=== PATIENT | male | born 1945 | race Caucasian/White ===

== ENCOUNTER 2018-05-24 23:50 | Observation (INO) | END 2018-05-26 16:23 | disposition home or self-care (01) ==

== ENCOUNTER 2019-05-21 16:44 | Observation (INO) | payer OTHER ==
[~2019-05-21] VITALS: Ht 177.8 cm; Wt 72.0 kg
[~2019-05-21 16:44] MED LIST: IBUP-1982 PO
[2019-05-21] MEDS ORDERED: SOD CHLORIDE 0.9% 1,000 ML IV STA (16:52)
[2019-05-21] MEDS ORDERED: SOD CHLORIDE 0.9% 500 ML IV STA (16:52)
--- NOTE | 2019-05-21 17:25 | ERD ---
ER Documentation Chief Complaint Chief Complaint BIB [id number] s/p fall 5 days ago, was unable to get up d/t weakness HPI 73-year-old male with no past medical history brought in by ambulance after he was found by the mailman on the floor unable to get up in his house. Patient lives alone. He states that about 1 week ago he fell next to his couch and was unable to get up. He states that neighbors have been visiting him and did call ambulance. Reportedly ambulance personnel went to his house and got him off of the ground but he never went to the hospital. He then fell again and was unable to get up. He has been on the ground for the last 3 days. He has been eating and urinating. Otherwise his story is somewhat unclear but the patient seems oriented. He is denying any pain in his back or extremities. He denies hitting his head. ROS All systems reviewed and are negative except as per history of present illness. Medications Home Meds Reported Medications Ibuprofen* (Ibuprofen*) 200 Mg Capsule, PO Q8 07/23/11 Allergies Allergies: Coded Allergies: Shellfish (Verified Allergy, Unknown, 05/25/18) PMhx/Soc History of Surgery: No Anesthesia Reaction: No Hx Neurological Disorder: No Hx Respiratory Disorders: Yes (ASTHMA) Hx Cardiac Disorders: No Hx Psychiatric Problems: No Hx Miscellaneous Medical Probl: No Hx Alcohol Use: No Hx Substance Use: No Hx Tobacco Use: No FmHx Family History: No diabetes Physical Exam Vitals Vital Signs Date Temp Pulse Resp B/P (MAP) Pulse Ox O2 O2 Flow FiO2 Time Delivery Rate 05/21/19 98.0 90 16 105/57 100 16:49 (73) Physical Exam Const: Very dirty, foul-smelling, unkempt, disheveled.. No apparent distress, nontoxic Head: Atraumatic Eyes: Normal Conjunctiva, PERRLA, EOMI ENT: Dry mucous membranes. Normal External Ears, Nose and Mouth. Neck: Full range of motion. No meningismus. No midline tenderness Chest wall: Nontender to palpation, no crepitus, no bruising Resp: Clear to auscultation bilaterally Cardio: Regular rate and rhythm, no murmurs. 2+ distal pulses Abd: Soft, non tender, non distended. Normal bowel sounds Skin: No petechiae or rashes Back: No midline or flank tenderness. Left upper play back operator to palpation Ext: No deformities. No joint swelling. Full range of motion at all joints. Old bruising noted to bilateral upper extremities, otherwise normal to inspection and palpation Neur: Awake and alert, oriented x3, no facial asymmetry, cranial nerves intact, strength and sensations grossly intact. Psych: Normal Mood and Affect Result Diagram: 05/21/19 1705 05/21/19 1705 Results 24 hrs Laboratory Tests Test 05/21/19 17:05 05/21/19 17:21 05/21/19 18:41 White Blood Count 11.8 10^3/ul Red Blood Count 3.77 10^6/ul Hemoglobin 12.3 g/dl Hematocrit 36.6 % Mean Corpuscular Volume 97.1 fl Mean Corpuscular Hemoglobin 32.6 pg Mean Corpuscular 33.6 g/dl Hemoglobin Concent Red Cell Distribution Width 14.2 % Platelet Count 183 10^3/UL Mean Platelet Volume 9.7 fl Immature Granulocytes % 0.500 % Neutrophils % 77.5 % Lymphocytes % 13.1 % Monocytes % 7.9 % Eosinophils % 0.7 % Basophils % 0.3 % Nucleated Red Blood Cells % 0.0 /100WBC Immature Granulocytes # 0.060 10^3/ul Neutrophils # 9.2 10^3/ul Lymphocytes # 1.6 10^3/ul Monocytes # 0.9 10^3/ul Eosinophils # 0.1 10^3/ul Basophils # 0.0 10^3/ul Nucleated Red Blood Cells # 0.0 10^3/ul Prothrombin Time 11.9 Sec Prothrombin Time Ratio 0.9 INR International 0.87 Normalized Ratio Activated Partial Thromboplast 26.3 Sec Time Sodium Level 140 mmol/L Potassium Level 3.9 mmol/L Chloride Level 108 mmol/L Carbon Dioxide Level 26 mmol/L Anion Gap 6 Blood Urea Nitrogen 54 mg/dl Creatinine 1.63 mg/dl Est Glomerular Filtrat mL/min Rate mL/min Glucose Level 115 mg/dl Calcium Level 8.8 mg/dl Total Bilirubin 0.7 mg/dl Direct Bilirubin 0.00 mg/dl Indirect Bilirubin 0.7 mg/dl Aspartate Amino Transf (AST/SGOT) 38 IU/L Alanine 36 IU/L Aminotransferase (ALT/SGPT) Alkaline Phosphatase 108 IU/L Troponin I < 0.012 ng/ml Total Protein 6.7 g/dl Albumin 3.6 g/dl Globulin 3.10 g/dl Albumin/Globulin Ratio 1.16 Bedside Glucose 137 mg/dL Urine Color YELLOW Urine Clarity CLEAR Urine pH 5.0 Urine Specific Willow 1.021 Urine Ketones NEGATIVE mg/dL Urine Nitrite NEGATIVE mg/dL Urine Bilirubin NEGATIVE mg/dL Urine Urobilinogen NEGATIVE mg/dL Urine Leukocyte Esterase NEGATIVE Nazia/ul Urine Microscopic RBC 4 /HPF Urine Microscopic WBC 0 /HPF Urine Hemoglobin 1+ mg/dL Urine Glucose NEGATIVE mg/dL Urine Total Protein NEGATIVE mg/dl Current Medications Medications Dose Sig/Claude Start Time Status Last (Trade) Ordered Route PRN Stop Time Admin Dose Reason Admin Sodium 500 ml @ Q1H STAT 05/21/19 DC 05/21/19 Chloride 500 mls/hr IV 16:52 05/21/19 17:28 17:51 Sodium 1,000 ml @ Q1H STAT 05/21/19 DC 05/21/19 Chloride 1,000 mls/hr IV 16:52 05/21/19 17:28 17:51 Ondansetron 4 mg BRIDGE ORDER 05/21/19 HCl (Zofran PRN IV 19:00 05/22/19 Inj) NAUSEA/VOMITI 18:59 NG 650 mg ER BRIDGE 05/21/19 Acetaminophen PRN PO 19:00 05/22/19 (Tylenol .MILD PAIN 18:59 Tab) 1-3 OR TEMP Procedures/MDM EMERGENT LABS AND DIAGNOSTIC STUDIES: Lab Results above were reviewed and interpreted by me. CBC: no anemia or evidence of infection CMP: Elevated BUN and creatinine, consistent with acute renal failure. No evidence of clinically significant electrolyte abnormality, acidosis, hypoglycemia, liver disease, or biliary obstruction Troponin within normal limits, not indicative of cardiac ischemia UA: 1+ hemoglobin. No RBCs. No evidence of infection 12-lead EKG was interpreted by Beni Thompson MD: Sinus rhythm with PVCs Normal axis Normal intervals No acute ST or T wave changes suggestive of acute ischemia or STEMI. Radiology Results as interpreted by Radiology below were reviewed by SRadha Thompson MD: Chest x-ray shows no acute abnormalities CT head: [] Initial Nursing notes reviewed. Previous Medical Records requested via the Electronic Health Record. EMERGENCY DEPARTMENT COURSE / MEDICAL DECISION MAKING: Patient is clearly unable to take care of himself as he has had frequent falls. He has no evidence of trauma on exam. Labs are notable for acute renal failure likely secondary to his severe dehydration. IV fluids were started. There is no evidence of infection at this time. No focal deficits or any other signs of stroke. Patient will require admission for hydration and placement. Accepting Care Team: Current data and ongoing care discussed. Time: Time of admission Primary Provider: Dr. Sinclair Outstanding Data: none Departure Diagnosis: Primary Impression: Acute renal failure Acute renal failure type: unspecified Qualified Codes: N17.9 - Acute kidney failure, unspecified Additional Impressions: Fall with no significant injury Encounter type: initial encounter Qualified Codes: W19.XXXA - Unspecified fall, initial encounter Gravely disabled Condition: Fair CHLOÉ THOMPSON MD May 21, 2019 17:25
[2019-05-21] MEDS ORDERED: ONDANSETRON 4 MG INJ IV PRN (19:00)
[2019-05-21] MEDS ORDERED: ACETAMINOPHEN 325 MG TAB PO PRN ×2 (19:00→21:00)
[2019-05-21 20:40] VITALS: BP 135/68; PULSE 69; RESP 18
[2019-05-21] MEDS ORDERED: ZOLPIDEM 5 MG TAB PO PRN (21:00)
[2019-05-21] MEDS: SOD CHLORIDE 0.9% 1,000 ML IV SCH (22:02)
[2019-05-21 23:22] VITALS: Ht 177.8 cm; Wt 72.0 kg
[2019-05-22 02:10] VITALS: BP 127/63; PULSE 62; RESP 18
[2019-05-22] MEDS: SOD CHLORIDE 0.9% 1,000 ML IV SCH ×2 (06:29→11:11)
[2019-05-22 08:22] VITALS: BP 146/69; PULSE 70; RESP 18
[2019-05-22] MEDS ORDERED: ACET325T33 PO (10:14)
[2019-05-22] MEDS ORDERED: ZOLP5TAB PO (10:14)
--- NOTE | 2019-05-22 11:58 | HP ---
DATE OF ADMISSION: 05/21/2019 CHIEF COMPLAINT: Generalized weakness. HISTORY OF PRESENT ILLNESS: A 73-year-old male with unremarkable past medical history who was ольга t into emergency room by paramedics after he was found down on the ground and unable to get up at [facility]. The mailman called paramedics. The patient lives by himself. He is a poor historian. The patie nt believes that he fell 1 week prior to admission and unable to get up. Initial evaluation was unre markable. The patient had very poor hygiene and quite disheveled. CPK was mildly elevated at 535. Initial BUN and creatinine were 54 and 1.63. Renal function improved following hydration. A repeat BUN and creatinine were 33 and 0.97. There were no electrolyte abnormalities. Albumin was at 3.6: White blood cell count was 11.8, hemoglobin 12.3, and platelet count 183,000. PAST MEDICAL HISTORY: None. MEDICATIONS PRIOR TO ADMISSION: Ibuprofen as needed. SOCIAL HISTORY: The patient lives at home by himself. He has not been able to care for himself. He denies tobacco or alcohol use. PHYSICAL EXAMINATION: GENERAL: Well-developed, well-nourished male with very poor or hygiene. He is foul smelling and radha te disheveled. VITAL SIGNS: Stable. He is afebrile. HEENT: Extraocular muscles intact. Pupils are equal and reactive to light bilaterally. Sclerae are anicteric. Oropharynx is clear and moist. NECK: Supple, no JVD, no carotid bruits. LUNGS: Clear to auscultation bilaterally. CARDIAC: Regular rate and rhythm. No murmurs, rubs or gallops. ABDOMEN: Soft, nontender, nondistended, normoactive bowel sounds. EXTREMITIES: No clubbing, cyanosis, or edema. Feet are very dirty. NEUROLOGICAL: Cranial nerves II through XII are intact. The patient moves all of his extremities, b ut has generalized weakness, coordination is intact. The CAT scan of the brain was unremarkable. ASSESSMENT: 1. A 73-year-old male with inability to care for self. 2. Generalized weakness. 3. Dehydration, resolved. PLAN: 1. Place in med/surg observation and continue IV fluid hydration. Arrange assisted facility placement for physical therapy and rehabilitation. 2. The patient will need long-term placement. Dictated By: RICARDO COTO/CYNDI Conf#: [id number] DID#: [id number]
--- NOTE | 2019-05-22 13:54 | DS ---
DATE OF ADMISSION: 05/21/2019 DATE OF DISCHARGE: DISCHARGE DIAGNOSES: 1. A 73-year-old male with generalized weakness. 2. Inability to care for self. 3. Dehydration, resolved. 4. Acute kidney injury, resolved. HOSPITAL COURSE: A 73-year-old male, who lives by himself, was brought in by paramedics after he was found on the ground. The patient was quite disheveled and dirty. Initial evaluation revealed acute dehydration and acute kidney injury. The patient received IV fluid hydration and renal function imp roved. The rest of the evaluation was unremarkable. The patient is in a stable condition for transi tion to [facility] facility for physical therapy and rehabilitation. He will need a long-term p lacement due to inability to care for self. Dictated By: RICARDO COTO/CYNDI Conf#: [id number] DID#: [id number]
[2019-05-22 13:57] VITALS: BP 129/63; PULSE 76; RESP 18
== END 2019-05-22 18:11 ==
LOC: E/R 16:44 → 2NE 18:58
PROVIDERS: ADMIT Internal Medicine; ATTEND Internal Medicine
DX: N17.9 Acute kidney failure, unspecified (principal); E86.0 Dehydration; R53.1 Weakness; J45.909 Unspecified asthma, uncomplicated; I67.82 Cerebral ischemia
CPT/HCPCS: 36415; 70450; 71045; 80048; 80053; 81001; 82550; 82962; 84484; 85025; 85610; 85730; 93005; 97161; 99285; G0378; J7030; J7040

== ENCOUNTER 2019-07-27 12:41 | Observation (INO) | payer OTHER ==
[~2019-07-27] VITALS: Ht 180.3 cm; Wt 64.5 kg
[~2019-07-27 12:41] MED LIST changes: +ACET325T33 PO; +ENOX40DI14 SC; +HYDR-3601 PO; -IBUP-1982 PO; +ZOLP5TAB PO
[2019-07-27] MEDS ORDERED: ACETAMINOPHEN 325 MG TAB PO PRN (16:00)
[2019-07-27] MEDS ORDERED: ONDANSETRON 4 MG INJ IV PRN (16:00)
[2019-07-27] MEDS ORDERED: morphine 2 MG INJ IV PRN (18:30)
[2019-07-27] MEDS ORDERED: ZOLPIDEM 5 MG TAB PO PRN (18:30)
[2019-07-27] MEDS ORDERED: HYDROCODONE/APAP (5/325) TAB PO PRN (18:30)
[2019-07-27 19:15] VITALS: Ht 180.3 cm; Wt 64.5 kg
[2019-07-27 20:00] VITALS: BP 133/72; PULSE 74; RESP 19
[2019-07-28 00:02] VITALS: BP 131/59; PULSE 74; RESP 19
[2019-07-28 04:40] VITALS: BP 150/80; PULSE 74; RESP 19
[2019-07-28 07:22] VITALS: BP 161/86; PULSE 73; RESP 18
[2019-07-28 11:55] VITALS: BP 144/75; PULSE 83; RESP 20
[2019-07-28 16:39] VITALS: BP 133/73; PULSE 81; RESP 19
== END 2019-07-28 15:01 ==
LOC: E/R 12:41 → TEL 15:56
PROVIDERS: ADMIT Internal Medicine; ATTEND Internal Medicine
DX: R55 Syncope and collapse (principal); S82.841A Displaced bimalleolar fracture of right lower leg, initial encounter for closed fracture; J45.909 Unspecified asthma, uncomplicated; R46.0 Very low level of personal hygiene; W19.XXXA Unspecified fall, initial encounter; Y93.89 Activity, other specified; Y92.009 Unspecified place in unspecified non-institutional (private) residence as the place of occurrence of the external cause
CPT/HCPCS: 29515; 36415; 73610; 73630; 80048; 84436; 84443; 84479; 84484; 85025; 93005; 99285; G0378